=== PATIENT | female | born 1950 | race Caucasian/White ===

== ENCOUNTER 2018-07-15 21:05 | Emergency (ER) | payer MEDICARE, MEDICAID ==
[~2018-07-15] VITALS: Ht 154.9 cm; Wt 74.8 kg
[2018-07-15 21:11] VITALS: BP 164/77
--- NOTE | 2018-07-15 21:18 | NUR ---
ED Nurse Note: Patient reports falling down stairs yesterday and denies head trauma. Patient has complaints of 10/10 of left ankle.
[2018-07-15] MEDS ORDERED: HYDROcodone/Acetamin 5/325 tab ORAL ONE (21:30)
--- NOTE | 2018-07-15 21:30 | NUR ---
ED Nurse Note: Patient is currently undergoing xrays.
[2018-07-15] MEDS ORDERED: IBUPROFEN600 MG ORAL (22:08)
[2018-07-15] MEDS ORDERED: HYDROCODON-ACE1 EA15 ORAL (22:08)
--- NOTE | 2018-07-15 22:09 | Emergency Room Report ---
History of Present Illness General Chief Complaint: Lower Extremity Injury Source: Patient, Family Member Present Illness HPI This is a 68-year-old female with no past medical history. She presents with chief complaint of left ankle pain. She was walking yesterday and she tripped and twisted her left ankle. She then fell onto both knees. She also have knee pain. She is been limping since then. Her ankle is swollen and tender. 8 out of 10. Worse with bearing weight. No head injury. Denies any fever chills but denies any nausea or vomiting. Allergies: Coded Allergies: CEPHALEXIN (Verified Allergy, Unknown, 07/15/18) Patient History Past Medical History: see triage record, old chart reviewed Past Surgical History: other Pertinent Family History: none Social History: Denies: smoking Last Menstrual Period: 30 YEARS AGO Now: No Immunizations: other Reviewed Nursing Documentation: PMH: Agreed; PSxH: Agreed Nursing Documentation-PMH Past Medical History: No Stated History Review of Systems Eye: Denies: eye pain, blurred vision ENT: Denies: ear pain, nose congestion, throat swelling Respiratory: Denies: cough, shortness of breath Cardiovascular: Denies: chest pain, palpitations Gastrointestinal: Denies: abdominal pain, diarrhea, nausea, vomiting Musculoskeletal: Reports: joint pain, joint swelling; Denies: back pain Skin: Denies: rash Neurological: Denies: headache, numbness Endocrine: Denies: increased thirst, increased urine Hematologic/Lymphatic: Denies: easy bruising All Other Systems: negative except mentioned in HPI Physical Exam Vital Signs Date Time Temp Pulse Resp B/P (MAP) Pulse Ox O2 Delivery O2 Flow Rate FiO2 07/15/18 21:11 98.1 76 15 164/77 (106) 64 Room Air Vitals with high blood pressure Sp02 EP Interpretation: reviewed, normal General Appearance: well appearing, no apparent distress, alert Head: normocephalic, atraumatic Eyes: bilateral eye PERRL, bilateral eye EOMI ENT: hearing grossly normal, normal pharynx Neck: full range of motion, supple, no meningismus Respiratory: chest non-tender, lungs clear, normal breath sounds Cardiovascular #1: regular rate, rhythm, no murmur Gastrointestinal: normal bowel sounds, non tender, no mass, no organomegaly, no bruit, non-distended Musculoskeletal: back normal, normal range of motion, other - Bilateral knees with abrasion. FROM. LEft ankle: edema and tenderness to lateral malleolus. ankle stable. DP 2+ Neurologic: alert, oriented x3 Psychiatric: mood/affect normal Skin: warm/dry Procedures Splinting Splinting : Consent: Verbal Location: left ankle Pre-Made Type: aircast Pre-Proc Neuro Vasc Exam: normal Post-Proc Neuro Vasc Exam: normal Patient Tolerated: Well Complications: None Medical Decision Making Diagnostic Impression: Primary Impression: Avulsion fracture of distal end of fibula Additional Impressions: Contusion of knee Qualified Codes: S80.01XA - Contusion of right knee, initial encounter Contusion of left knee, initial encounter ER Course Patient with ankle sprain and small avulsion fracture. No evidence of dislocation. Patient splint and crutches given. Will discharge home. Other X-Ray Diagnostic Results Other X-Ray Diagnostic Results #1: X-Ray ordered: Left ankle x-rays # of Views/Limited Vs Complete: 3 View Indication: Pain EP Interpretation: Yes Interpretation: no dislocation, other - avulsion frx of distal fibula. sTS Impression: Other - avulsion frx of fibula Electronically Signed by: Hugo Bhakta MD Other X-Ray Diagnostic Results #2: X-Ray ordered: Rt knee xrays # of Views/Limited Vs Complete: 3 View Indication: Pain EP Interpretation: Yes Interpretation: no dislocation, no soft tissue swelling, no fractures Impression: No acute disease Electronically Signed by: Hugo Bhakta MD Other X-Ray Diagnostic Results #3: X-Ray ordered: Lft knee xrays # of Views/Limited Vs Complete: 3 View Indication: Pain EP Interpretation: Yes Interpretation: no dislocation, no soft tissue swelling, no fractures Impression: No acute disease Electronically Signed by: Hugo Bhakta MD Last Vital Signs Date Time Temp Pulse Resp B/P (MAP) Pulse Ox O2 Delivery O2 Flow Rate FiO2 07/15/18 21:59 98.0 07/15/18 21:11 76 15 164/77 (106) 64 Room Air Status: improved Disposition: HOME, SELF-CARE Condition: Stable Scripts Ibuprofen* (MOTRIN*) 600 Mg Tablet 600 MG ORAL THREE TIMES A DAY, #30 TAB 0 Refills Prov: Hugo Bhakta MD 07/15/18 Hydrocodone/Acetaminophen 5-325* (HYDROCODONE/ACETAMINOPHEN 5-325*) 1 Each Tablet 1 TAB ORAL Q6H PRN for For Pain, #15 TAB 0 Refills Prov: Hugo Bhakta MD 07/15/18 Patient Instructions: Ankle Sprain Additional Instructions: Elevate leg. Ice pack to area. Use crutches. Follow-up with your doctor in 7 days. Return if worse. Hugo Bhakta MD Jul 15, 2018 22:09
--- NOTE | 2018-07-15 22:15 | NUR ---
ED Nurse Note: Patient cleared for discharge by [facility]. Patient verbalized understanding of discharge instructions. Patient ID band removed. Patient A&Ox4, ambulatory with crutches. Patient return demonstration of crutch use satisfactory. Patient departed with all personal belongings accompanied by her friend.
--- NOTE | 2018-07-16 10:49 | Diagnostic Imaging Report ---
Indication: left ankle pain Comparison: None Findings: 3 views of the left ankle obtained. There is lateral soft tissue swelling present. There is a small cortical/periosteal fracture at the inferior aspect of the lateral malleolus. No acute fracture, malalignment, periostitis, or osteochondral defects are identified. Impression: Superficial type injury inferior tip of the lateral malleolus. Soft tissue swelling noted
--- NOTE | 2018-07-16 11:08 | Diagnostic Imaging Report ---
Indication: Pain Knee pain/trauma 3 views of the right knee were obtained. Findings: No acute fracture, malalignment, or joint effusion are identified. Joint space is relatively well-maintained. Lateral view shows suggestion of slight irregularity along the posterior patellar facets suggestive of arthrosis or chondromalacia. Impression: Negative for acute findings. Suggestion of chondromalacia patella/arthrosis
--- NOTE | 2018-07-16 11:09 | Diagnostic Imaging Report ---
INDICATION: Knee Pain COMPARISON: None 3 views of the left knee were obtained. FINDINGS: No acute fracture, malalignment, or joint effusion are identified. Joint space is relatively well-maintained. Some irregularity of the patellofemoral joint noted. Impression: Negative for acute injury Suggestion of patellofemoral chondrosis/arthrosis.
== END 2018-07-15 22:15 | disposition home or self-care (01) ==
LOC: EMR 21:17
DX: S82.832A Other fracture of upper and lower end of left fibula, initial encounter for closed fracture (principal); S80.02XA Contusion of left knee, initial encounter; Z88.1 Allergy status to other antibiotic agents; W01.0XXA Fall on same level from slipping, tripping and stumbling without subsequent striking against object, initial encounter; Y93.01 Activity, walking, marching and hiking; Y92.9 Unspecified place or not applicable
CPT/HCPCS: 29515; 99284